=== PATIENT | male | born 1955 | race Caucasian/White ===

== ENCOUNTER 2023-11-23 06:12 | Day surgery (SDC) | payer MEDICARE, SELFPAY ==
[2023-11-19 13:27] VITALS: BMI 28.3
[2023-11-23 06:38] VITALS: BMI 27.8
[2023-11-23 06:43] VITALS: BMI 27.8
[2023-11-23 06:49] VITALS: BP 142/74; PULSE 89; RESP 16; TEMP 35.7; O2SAT 96
[2023-11-23] MEDS: Lactated Ringers 1,000 ML 80 ML IVCONT (06:54)
--- NOTE | 2023-11-23 07:01 | HO.ANESPROP2 ---
HPI - Anesthesia Eval Consult details Narrative: Colonic Surveillance [facility] Past Medical History Medical History Full dentures Migraines IBS (irritable bowel syndrome) Elevated cholesterol History of diverticulitis Environmental and seasonal allergies HTN (hypertension) Hiatal hernia Family History Family history of problems with anesthesia: No Surgical History Surgical History Hx of neck surgery History of shoulder surgery Hx of arthroscopy of left knee History of total right knee replacement Hx of colonoscopy History of colon resection History of Problems with Anesthesia: No Social History Social History Patient Tobacco Use Status: Former Tobacco user Quit Date: 30 years Use of substances other than those prescribed or required for medical reasons: No Are you DNR?: No Advance Directives: No Advance Directives Information Provided: Yes Meds Allergies Allergy/AdvReac Type Severity Reaction Status Date / Time hydrocodone [From Vicodin] Allergy Nausea and Verified 11/23/23 06:37 Vomiting Active Medications: Current Medications Lactated Ringer's (Lr) 1,000 mls @ 80 mls/hr IVCONT .[id number] [place] Last Admin: 11/23/23 06:54 Dose: 80 mls/hr Home Medications Medication Instructions Recorded Confirmed Last Taken Type ascorbic acid (vitamin C) 1,000 mg 1,000 mg PO DAILY 09/16/21 11/19/23 Unknown History tablet (Vitamin C) cholecalciferol (vitamin D3) 25 25 mcg PO DAILY 09/16/21 11/19/23 Unknown History mcg (1,000 unit) capsule (Vitamin D3) cyanocobalamin (vitamin B-12) 5,000 mcg sublingual DAILY 09/16/21 11/19/23 Unknown History 5,000 mcg sublingual tablet (Vitamin B-12) lisinopril 10 mg tablet 10 mg PO DAILY 09/16/21 11/23/23 11/23/23 History smnzppndkgmd-zsvhsdih-pnairc 1 tab PO DAILY 09/16/21 11/19/23 Unknown History tablet (Multivitamin 50 Plus tablet) atorvastatin 1 tab PO DAILY 11/19/23 11/23/23 11/23/23 History cetirizine 10 mg tablet 10 mg PO DAILY 11/19/23 11/19/23 Unknown History docusate sodium 100 mg capsule 100 mg PO DAILY 11/19/23 11/19/23 Unknown History (Colace) Exam Height,Weight and Vital Signs: Height 5 ft 7 in Weight 80.399 kg Last Vital Signs Temp 96.2 F L 11/23/23 06:49 Pulse 89 11/23/23 06:49 Resp 16 11/23/23 06:49 BP 142/74 H 11/23/23 06:49 Pulse Ox 96 11/23/23 06:49 O2 Del Method Room Air 11/23/23 06:49 Airway Mallampati Class: II TM Dist: >3cm Neck ROM: Full Denture: Upper and Lower Loose/Missing/Broken Teeth: Yes Heart: [id number] Lungs: cta b/l Assessment and Plan Assessment Anesthesia Assessment: Anesthesia Plan Discussed and Chart Reviewed Final Anesthetic Review Family History of Problems with Anesthesia: No History of Problems with Anesthesia: No NPO: Yes ASA Class: III Final Preanesthetic Review: No Changes in Pt Med Stat, Meds/Allgs Chart Reviewed, Consent Obtained/Reviewed and Anes Risks/Benef Reviewed Patient Risk: Intermediate Procedure Risk: Intermediate Assessment/Block/Sedation in SS: Assess/Block/Sedation-SS Anesthetic Plan Anesthetic Plan: MAC: Disposition: Standard PACU
--- NOTE | 2023-11-23 07:28 | MHC.SHP ---
Pre-Procedural Eval Section A - 24 Hr Update-Section A only Date of Service: 11/23/23 The patient is an INPATIENT: No Changes since office visit: No Cold of Flu in the past 2 weeks, No New Medical Problems, No Changes in Medication and No Patient answered all questions The patient has been examined within 24 hours of the surgical procedure. The History & Physical has been completed within 30 days and I have reviewed it.: Yes Section B - Complete if H&P > 30 days Chief Complaint: Encounter for screening for malignant neoplasm of Allergies: Allergies Allergy/AdvReac Type Severity Reaction Status Date / Time hydrocodone [From Vicodin] Allergy Nausea and Verified 11/23/23 06:37 Vomiting Plan I have reviewed the history and physical and performed a pertinent physical examination on my patient. No changes have occurred unless specified. Time Spent With Patient Time: Total time managing care of this patient today ____ minutes.
[2023-11-23 08:00] VITALS: BP 80/45; PULSE 76; RESP 16; TEMP 36.4; O2SAT 92
[2023-11-23 08:15] VITALS: BP 105/67; PULSE 76; RESP 16; TEMP 36.4; O2SAT 98
--- NOTE | 2023-11-23 08:27 | OP_ITS ---
DATE OF SERVICE: 11/23/2023 SURGEON: Johnny Pardo MD INDICATIONS: Colon cancer screening and prior history of adenomatous colon polyps. PREOPERATIVE DIAGNOSIS: POSTOPERATIVE DIAGNOSIS: PROCEDURE PERFORMED: Colonoscopy to the terminal ileum with snare polypectomy. ESTIMATED BLOOD LOSS: COMPLICATIONS: ANESTHESIA: Monitored anesthesia care. ASSISTANTS: SPECIMENS: DESCRIPTION OF PROCEDURE: History and physical performed. The risks and benefits of the procedure were explained to the patient, and informed consent was obtained. The patient was placed in the left lateral decubitus position. A digital rectal exam was performed and was found to be normal. The Olympus pediatric video colonoscope was introduced into the rectum and advanced to the cecum. The cecum was identified by transillumination, palpation, and identification of the ileocecal valve. Examination was performed. The scope was removed. He tolerated the procedure well and was returned to recovery area in a stable condition. FINDINGS: The terminal ileum was examined and appeared normal. The visualized colonic mucosa was normal. The quality of prep was good. Two polyps were identified, both measuring less than 10 mm. These were removed with a hot snare and were located at 85 cm and 65 cm. No other polyps were identified. There was mild diverticulosis involving the sigmoid. Retroflexed examination showed some small internal hemorrhoids. IMPRESSION: Colon polyps. RECOMMENDATION: Follow up the biopsy results. MD GIORGIO Hughes/LEWIS / [id number]
== END 2023-11-23 08:55 | disposition home or self-care (01) ==
PROVIDERS: PCP Internal Medicine; Visit Provider Internal Medicine Gastroenterology
PROC: 0DJD8ZZ Inspection of Lower Intestinal Tract, Via Natural or Artificial Opening Endoscopic (ICD-10-PCS; CPT 45378; principal; 2023-11-23 07:30)
DX: Z12.11 Encounter for screening for malignant neoplasm of colon (principal); Z86.010 Personal history of colon polyps; D12.5 Benign neoplasm of sigmoid colon; K63.5 Polyp of colon; K57.30 Diverticulosis of large intestine without perforation or abscess without bleeding; K64.8 Other hemorrhoids; I10 Essential (primary) hypertension; E78.5 Hyperlipidemia, unspecified; K58.9 Irritable bowel syndrome, unspecified; G43.909 Migraine, unspecified, not intractable, without status migrainosus; Z79.899 Other long term (current) drug therapy
CPT/HCPCS: 45385; 88305; J2704